=== PATIENT | female | born 1955 | race Caucasian/White ===

== ENCOUNTER 2017-01-30 17:18 | Inpatient (IN) | payer MEDICARE, OTHER ==
--- NOTE | ~2017-01-30 | DS ---
Discharge Summary [id number] [place] [address] NAME: AMAURI HASSAN : 53 STATUS : DIS IN PAT#: [id number] AGE: 61 ADM/REG DATE : 01/30/17 MR#: [id number] REPORT SERV DATE: 02/06/17 DICTATED BY: SANGITA MTZ DATE: 02/06/17 REPORT STATUS : Draft TRANSCRIBED BY: MODL DATE: 02/06/17 ADMISSION DATE: 01/30/2017 DISCHARGE DATE: 02/06/2017 DISCHARGE DIAGNOSES: 1. Chronic sacral wound. 2. Tachycardia, controlled. 3. Metastatic breast cancer, metastases known to bone and liver. 4. History of atrial fibrillation. 5. Chronic pancytopenia secondary to disease. 6. Generalized debility secondary to disease. 7. Chronic nausea secondary to disease controlled at this time. CONSULTATIONS: Infectious Disease, Dr. Chun. IMAGIN. X-ray left leg on January 30, 2017; impression, severe diffuse metastatic neoplastic disease. 2. X-ray, ribs January 30, 2017; impression, no evidence of displaced rib fracture. 3. Cervical x-ray, January 30, 2017; impression, extensive osteoblastic neoplastic disease. 4. X-ray of thoracic spine, January 30, 2017, extensive osteoblastic metastasis. 5. Chest x-ray, February 03, 2017; impression, no acute cardiopulmonary process demonstrated. Extensive osseous metastatic disease. Right 9th rib fracture has occurred since August. LABORATORY DATA: WBC 6.8, hemoglobin 8.4, hematocrit 27.6, and platelet count is 37. Wound culture, positive E. coli and methicillin-sensitive Staph aureus. COURSE OF HOSPITAL STAY: Please refer to history and physical dictated by Katelynn Donald, nurse practitioner on January 30, 2017 for complete admission details, as well as interim report noted on February 03, 2017. This patient is a 61-year-old female, who presented as a direct admission from [facility]'s office. She does present with a history of metastatic breast cancer, new metastasis to bone and liver. She is under the care Dr. Kim Adrian. The patient did present with complaints of increased pain. The patient has declined significantly since previous visits with Dr. Adrian. The patient did report that she was weaker over the past several days and had suffered a fall on [place] prior to admission hitting her neck and back on the door frame. The patient did deny at that time, loss of consciousness. She also had complaints of chronic nausea. The patient was then admitted to the hospital for pain control and further evaluation. 1. Chronic sacral wound. Wound cultures were obtained, which is noted above. Infectious Disease was consulted regarding antibiotic. Per their recommendation, no antibiotic was started. [place] that this was a colonized area and no antibiotic was needed for the wound. Wound care was provided and continued during her stay. Discharge Summary [address] [place]. [address] NAME: AMAURI HASSAN : 53 STATUS : DIS IN PAT#: [id number] AGE: 61 ADM/REG DATE : 01/30/17 MR#: [id number] REPORT SERV DATE: 02/06/17 DICTATED BY: SANGITA MTZ DATE: 02/06/17 REPORT STATUS : Draft TRANSCRIBED BY: ALEKSANDR DATE: 02/06/17 2. Tachycardia. The patient's heart rate noted elevated. She was started on the low-dose metoprolol. This will continue upon discharge. At this time, heart rate is 101, which is controlled. 3. Metastatic breast cancer with known metastasis to bone and liver. The patient is under the care Dr. Kim Adrian. Per Dr. Adrian and patient's conversation, no further treatments are planned. 4. History of atrial fibrillation. The patient was monitored during her stay and remained stable. 5. Chronic pancytopenia secondary to disease. The patient was monitored during her stay. She did receive one unit of packed RBCs during her stay here. 6. Generalized debility secondary to her disease. The patient's PT eval was completed and recommendations were made. The patient will be discharged to a skilled facility for further treatment. 7. Chronic nausea secondary to disease. The patient has had scheduled antiemetics, which have controlled her symptoms. DISCHARGE PLANNING: The patient will be discharged to skilled facility and no further chemo is planned at this time. Pain is better controlled, as well as nausea. DISCHARGE MEDICATIONS: 1. Fentanyl 100 mcg patch topical every 72 hours. 2. Lopressor 12.5 mg one p.o. twice daily. 3. MiraLAX powder one pack p.o. daily p.r.n. for constipation. 4. Tylenol 325 mg and 650 mg p.o. every four hours p.r.n. for pain. 5. Dulcolax 5 mg and 10 mg p.o. p.r.n. for constipation. 6. Flexeril 10 mg one p.o. three times daily p.r.n. for muscle spasm. 7. Benadryl 25 mg and 50 mg p.o. every four hours p.r.n. for itching. 8. Marinol 5 mg p.o. p.r.n. daily. 9. Zofran 8 mg p.o. every eight hours p.r.n. for nausea. 10.Percocet 10/325 one to two p.o. every four hours p.r.n. for pain. 11.Phenergan 25 mg one p.o. every four hours p.r.n. for nausea. 12.Ambien 10 mg one p.o. at bedtime. 13.Lidoderm 5% ointment one application topical p.r.n. to the dressing change area. This discharge took less than 30 minutes. SHILO/ALEKSANDR Sangita Mtz NP / [id number] CC: All Oshea MD
--- NOTE | ~2017-01-30 | HP ---
History And Physical [address] [place]. [address] NAME: AMAURI HASSAN : 53 STATUS : ADM IN PAT#: [id number] AGE: 61 ADM/REG DATE : 01/30/17 MR#: [id number] REPORT SERV DATE: 01/31/17 DICTATED BY: DATE: REPORT STATUS : Draft TRANSCRIBED BY: MODL DATE: 01/30/17 DATE OF ADMISSION: 01/30/2017 CHIEF COMPLAINT: Acute on chronic pain secondary to fall, nausea with vomiting, and metastatic breast cancer. POINT OF ENTRY: Direct admission from [facility]. HISTORY OF PRESENTING ILLNESS: The patient's history was obtained through careful interview with the patient and her sister coupled with review of [facility] office note dated 01/30/[address] Kim Adrian in addition to review of [facility] records. Briefly, the patient is a 61-year-old female who presented to [facility]'s office today for a followup visit. The patient has a history of metastatic breast cancer with extensive bone involvement with liver lesions. There are no plans for any further therapy secondary to patient's poor performance status. Upon evaluation, during Oncology office visit, the patient was found to be feeling poorly with increased nausea and decreased p.o. intake. The patient reported several recent falls at home with most recent one occurring on 01/27/2017. Since that fall the patient has had increased pain. During today's office visit, it was noticed that the patient has declined significantly since last visit and is no longer to take care of herself nor can she be safely cared for at home due to continued decline in performance status. The patient was referred for direct admission for further evaluation of increased pain secondary to recent fall and uncontrolled nausea. The patient reported that she has become weaker over the past several days and suffered a fall on Friday resulting in hitting her neck and mid back on a door frame. The patient denied loss of consciousness associated with the fall. The patient also complained of increased chronic nausea with intermittent vomiting several times weekly. Up until recently, the patient was able to ambulate using a cane, however, she is now reporting an unsteady gait secondary to generalized weakness. REVIEW OF SYSTEMS: CONSTITUTIONAL: Denies recent fever, chills, rigors. EYES: Denies any recent changes in visual acuity. HEENT: Denies headache and sore throat. CARDIOVASCULAR: Denies chest pain, palpitations, syncope. RESPIRATORY: Denies cough, wheezing, shortness of breath. GASTROINTESTINAL: Complains of chronic nausea with intermittent vomiting. Denies abdominal pain, diarrhea, and constipation. History And Physical [address] [place]. [address] NAME: AMAURI HASSAN : 53 STATUS : ADM IN [facility]#: [id number] AGE: 61 ADM/REG DATE : 01/30/17 MR#: [id number] REPORT SERV DATE: 01/31/17 DICTATED BY: DATE: REPORT STATUS : Draft TRANSCRIBED BY: MODL DATE: 01/30/17 MUSCULOSKELETAL: Complains of chronic low back pain. A new acute pain to cervical and thoracic spine, right lateral ribs, and left lower extremity secondary to recent fall. INTEGUMENT: Positive for chronic sacral wound. NEUROLOGIC: Positive for stroke, TIA, and weakness. HEMATOLOGIC: Positive for chronic anemia. PSYCHIATRIC: Negative for depression, bipolar, and anxiety. : Negative for dysuria and hematuria. ENDOCRINE: Negative for diabetes and thyroid disease. The review of systems is negative except for the pertinent listed above. SOCIAL HISTORY: The patient lives with her sister and [id number]. No history of alcohol use. Remote smoker, having quit approximately seven years ago. FAMILY HISTORY: Obtained from review of [facility] office note. The patient's mother is with health history of cancer. The patient's father is with health history of heart disease. HOME MEDICATIONS: 1. Excedrin extra strength tablet, take two tablets p.o. every six hours as needed. 2. Dulcolax 5 mg tablet, take two tablets p.o. daily as needed. 3. Flexeril 10 mg tablet p.o. three times daily as needed. 4. Benadryl 25 mg tablet, take 50 mg p.o. every four hours as needed. 5. Marinol 5 mg tablet, take 5 mg p.o. daily as needed. 6. Fentanyl 100 mcg patch applied topically every 72 hours. 7. Zofran ODT 8 mg tablet every eight hours as needed. 8. Percocet 10/325 mg tablet, take one to two tabs p.o. every four hours as needed. 9. Phenergan 25 mg tablet p.o. every four hours as needed. 10.Lidocaine 5% ointment applied topically before sacral wound dressing changes as needed. 11.Ambien 10 mg tablet p.o. at bedtime as needed. ALLERGIES: 1. LATEX. REACTION, HIVES. 2. SHELLFISH. REACTION, NAUSEA AND VOMITING. 3. AUGMENTIN. REACTION, NAUSEA AND VOMITING. 4. TAPE. REACTION, RASH. 5. MUSHROOM. REACTION, NAUSEA. PHYSICAL EXAMINATION: VITAL SIGNS: Blood pressure 134/72, oxygen saturation 100% on room air, temperature 98.7, pulse 126, respirations 16, weight 55.8 kg, height 5 feet 5 inches. NEURO: The patient is alert with no focal deficits. GENERAL: The patient is cooperative and in no apparent distress. Awake, alert, and oriented x3. Able to answer questions, but occasionally has difficulty with word finding. Appears frail. NECK: No lymphadenopathy. Posterior oropharynx is visible without lesions or exudate. CHEST: Right lateral ribs tender to palpation without lesions or bruises. Right Port-A-Cath History And Physical [address] [address] NAME: AMAURI HASSAN : 53 STATUS : ADM IN [facility]#: [id number] AGE: 61 ADM/REG DATE : 01/30/17 MR#: [id number] REPORT SERV DATE: 01/31/17 DICTATED BY: DATE: REPORT STATUS : Draft TRANSCRIBED BY: MODL DATE: 01/30/17 is intact. Surrounding skin without redness, warmth, or breakdown. LUNGS: Normal work of breathing. Diminished at bilateral bases. No wheezes. No rhonchi. CARDIOVASCULAR: Regular rate and rhythm. Mild tachycardia. EXTREMITIES: Edema to left lower extremity below the knee extending to ankle. Bilateral pedal pulses palpable. SKIN: Bandage to sacral wound clean, dry, and intact, but not removed during initial assessment. PSYCH: Normal affect. PAST MEDICAL HISTORY: 1. Atrial fibrillation with history of TIA and stroke. 2. Esophageal stricture requiring multiple dilatations. 3. Hypertension. 4. Chronic anemia. 5. Chronic sacral wounds. 6. Metastatic breast cancer with extensive bone metastases and liver lesions. DICTATION ENDS HERE CHASE/ALEKSANDR KAREL Collazo / [id number] CC: Dipesh Peter II, MD
--- NOTE | ~2017-01-30 | IDS ---
Interim Discharge Summary [facility] [address] [place]. [address] NAME: AMAURI HASSAN : 53 STATUS : ADM IN PAT#: [id number] AGE: 61 ADM/REG DATE : 01/30/17 MR#: [id number] REPORT SERV DATE: 02/04/17 DICTATED BY: DATE: REPORT STATUS : Draft TRANSCRIBED BY: MODL DATE: 02/03/17 ADMISSION DATE: 01/30/2017 DISCHARGE DATE: Discharge date pending approval to long-term care facility. Interim summary covers dates of service between 01/30/2017 and 02/03/2017. INTERIM DIAGNOSES: 1. Tachycardia. Heart rate has been mildly elevated throughout this admission. The patient's heart rate has ranged between 119 and 122 today. The patient is asymptomatic, rate is elevated, however, rhythm is regular in the setting of paroxysmal atrial fibrillation. The patient's systolic blood pressure has remained stable between 124 and 148. Metoprolol tartrate 12.5 mg p.o. twice daily was added tonight with parameters to hold for systolic blood pressure less than 110 or heart rate less than 60. 2. Acute on chronic pain. The patient has severe chronic pain secondary to extensive bone metastasis in the setting of breast cancer. The patient presented with complaints of acute on chronic pain secondary to sustaining a fall at home on 01/27/2017. Acute pain to cervicothoracic spine, right lateral ribs, and left lower extremity for persistent status post fall. The patient underwent x-rays to cervical and thoracic spine, right lateral ribs, and 2-view film of the left tibia and fibula. All x-rays were negative for fracture. However, the patient underwent chest x-ray today for clearance to transfer to long-term care facility. Chest x-ray indicated nondisplaced fracture of the right 9th rib laterally, which is new from August comparison imaging. This would help explain the patient's complaints of increased right rib pain in the setting of metastases. Continue pain medications as needed. 3. Chronic sacral wound. This has been present for 10+ years secondary to chemotherapy and radiation therapy. The patient has history of wound infection to include Pseudomonas, MSSA, and Klebsiella pneumoniae. The patient is under the outpatient wound care of Dr. Mendenhall. Wound nurse was consulted upon admission, and wound care has provided further recommendations. The patient began complaining of discomfort at wound site on February 01. Assessment of wound revealed fairly clean wound base with yellow slough with mild amount of purulent drainage and foul odor. Culture was obtained and is pending. Antibiotics on hold for now until final wound culture results. The patient is afebrile, and no clinical signs or symptoms of systemic infection. If concerned for infection, the patient may require imaging to rule out bone infection as well. 4. Metastatic breast cancer with extensive metastatic disease to bone with liver lesions. The patient is not a candidate for any future therapy. Goal is to transfer to long- term care facility, to continue comfort measures. The patient requested to go to [facility] and approval is pending. 5. Atrial fibrillation, paroxysmal history. The patient has history of TIA as well. The patient has not been on chronic anticoagulation for quite some time secondary to chronic pancytopenia from metastatic disease. The patient has recent concern that she may be experiencing intermittent TIA secondary to increased difficulty with word Interim Discharge Summary [address] [place]. [address] NAME: AMAURI HASSAN : 53 STATUS : ADM IN PAT#: [id number] AGE: 61 ADM/REG DATE : 01/30/17 MR#: [id number] REPORT SERV DATE: 02/04/17 DICTATED BY: DATE: REPORT STATUS : Draft TRANSCRIBED BY: ALEKSANDR DATE: 02/03/17 finding. The patient was educated that she is at increased risk for adverse effects of chronic anticoagulation to include spontaneous bleed in the setting of chronic thrombocytopenia. Platelet count is 20 today. 6. Chronic pancytopenia, this is secondary to metastatic disease. The patient's hemoglobin was 6.8 today. She is status post 1 unit packed red blood cells. H and H will be rechecked, and the patient will receive one more unit if hemoglobin remains below 7. Continue to transfuse p.r.n. 7. General debility. This patient was transitioned to long-term care facility for continued comfort and supportive measures secondary to metastatic breast cancer with extensive metastases. 8. Chronic nausea, this is secondary to disease state. Continue antiemetics p.r.n. DISPOSITION: 1. The patient is planning transfer to [facility] once approval has been granted. 2. Monitor blood pressure and heart rate with new addition of low-dose beta-na added last night. CHASE/ALEKSANDR KAREL Collazo / [id number] CC: Solomon Ortega M.D.
--- NOTE | ~2017-01-30 | HP ---
History And Physical [address] [id number] [place]. [address] NAME: AMAURI HASSAN : 53 STATUS : ADM IN PAT#: [id number] AGE: 61 ADM/REG DATE : 01/30/17 MR#: [id number] REPORT SERV DATE: 01/31/17 DICTATED BY: DATE: REPORT STATUS : Draft TRANSCRIBED BY: MODL DATE: 01/30/17 DATE OF ADMISSION: 01/30/2017 ADDENDUM: ASSESSMENT AND PLAN: 1. Acute on chronic pain. The patient is experiencing cervical, thoracic, and right lateral rib pain in addition to pain on left lower extremity below-knee secondary to fall sustained at home on 01/27/2017. Chronic pain is related to extensive bone metastases secondary to metastatic breast cancer. X-ray will be obtained of cervical thoracic spine and right lateral ribs and 2-view x-ray of left tibia and fibula. The patient will continue home pain medications and they will be titrated as indicated based on the patient's pain level. 2. Chronic nausea with intermittent vomiting. This is likely related to progression of metastatic disease. The patient will be provided Zofran and Phenergan as needed. 3. Chronic sacral wound. This has been present for approximately 10 years as a result of Taxol and radiation therapy. Wound requires packing. Wound nurse has been consulted. Wound was not assessed during an initial exam. Bandage was clean, dry, and intact. 4. Atrial fibrillation history. The patient also has history of transient ischemic attack and stroke. The patient has not been on any chronic anticoagulation for quite some time secondary to metastatic disease and chronic anemia and thrombocytopenia. 5. Chronic anemia. This is likely due to metastatic disease progression. The patient did receive EPO shot today, transfuse as needed for hemoglobin less than 7 or platelets less than 10. 6. Metastatic breast cancer with extensive bone metastases and liver lesions. The patient is managed by Dr. Kim Adrian, [facility]. There is no further therapy planned secondary to poor performance status. All efforts from this point forward will be focused on comfort. The patient has denied hospice in the past and still refuses medications to transfer care of service to hospice. However, the patient is agreeable to transition to senior living facility for end of life care. The patient's code status is do not resuscitate do not intubate. The care of this patient will be transferred to the service of Dr. Dipesh Peter. ANTONIAH/ALEKSANDR KAREL Collazo / [id number] CC: Dipesh Peter II, MD
[~2017-01-30 17:18] MED LIST: AMB10 PO; ARIMIDEX1 PO; BEN25 PO; BETAPACE80 PO; DEPAKOTEER PO; DURA75 TOP; FASLODEX IM; FLEX PO; IBRANCE125 PO; KLONO5 PO; LORCET PO; LUNESTA3 MG PO; MARI5 PO; MSCONT15 PO; NORCO1 TAB PO; PERCOCET 10/3251 TAB PO; PHENERGAN25 MG/ML PO; PR25 PO; PRADAXA150 MG PO; VICODINTAB PO; ZOFRAN8 PO; ZOFRANODT8 PO
[2017-01-30] MEDS ORDERED: DURA100 TOP (17:53)
[2017-01-30] MEDS ORDERED: BEN25 PO (17:57)
[2017-01-30] MEDS ORDERED: LIDOCAINE 5% OINT TOP (17:58)
[2017-01-30] MEDS ORDERED: EXCEDRIN EXTRA1 EACH PO (17:58)
[2017-01-30] MEDS ORDERED: BIST PO (17:59)
[2017-01-30 20:42] LABS: HEMATOCRIT 24.1 % (36.0-48.0); HEMOGLOBIN 7.3 g/dL (12.0-16.0); MEAN CORPUSCULAR HEMOGLOB 29.9 pg (26.0-34.0); NUCLEATED RED BLOOD CELLS 7.9 /100WBC (0-0); PLATELET COUNT 50 10/3/uL (150-400); RBC DISTRIBUTION WIDTH 20.8 % (12.0-16.0); RED CELL COUNT 2.44 10/6/uL (4.0-5.6)
[2017-01-30 20:45] LABS: MANUAL DIFF YES %; MEAN CORPUS HGB CONC 30.3 g/dL (32.0-36.0); MEAN CORPUSCULAR VOLUME 98.8 fL (80-100); WHITE BLOOD CELLS 5.6 10/3/uL (4.5-10.5)
[2017-01-30 20:46] LABS: BUN (BLOOD UREA NITROGEN) 21 MG/DL (6-23); CALCIUM, SERUM 10.1 MG/DL (8.5-10.4); CHLORIDE, SERUM 102 MMOL/L (96-112); CO2 (CARBON DIOXIDE) 28 MMOL/L (24-34); CREATININE 1.09 MG/DL (0.55-1.02); GFR AFRICAN AMERICAN 63 ML/MIN (>=60); GFR NON AFRICAN AMERICAN 54 ML/MIN (>=60); GLUCOSE, SERUM 115 MG/DL (60-99); POTASSIUM, SERUM 3.7 MMOL/L (3.5-5.3); SODIUM, SERUM 138 MMOL/L (135-148)
[2017-01-30 20:53] LABS: BAND NEUTROPHILS 17 %; IMMATURE GRANS ABSOLUTE (CALC) 0.28 10/3/uL (0.0-0.11); LYMPHOCYTES 17 %; LYMPHOCYTES ABSOLUTE (CALC) 0.95 10/3/uL (0.67-4.30); METAMYELOCYTES 5 %; MONOCYTES 13 %; MONOCYTES ABSOLUTE (CALC) 0.73 10/3/uL (0.21-1.20); NEUTROPHILS ABSOLUTE (CALC) 3.64 10/3/uL (2.02-8.40); SEGMENTED NEUTROPHIL (0) 48 %; TOTAL NUCLEATED CELLS 100; TOXIC GRANULATION 2+
[2017-01-30 20:54] LABS: ANISOCYTOSIS 1+ (5-10/OIF) (0-5/OIF); PLATELET ESTIMATE DEC (ADEQUATE); POLYCHROMASIA 1+ (2-5/OIF) (0-1/OIF); TEARDROP SHAPED RBCS OCC (0-2/OIF)
[2017-01-31 08:02] LABS: HEMOGLOBIN 7.4 g/dL (12.0-16.0); MEAN CORPUS HGB CONC 30.8 g/dL (32.0-36.0); MEAN CORPUSCULAR HEMOGLOB 30.5 pg (26.0-34.0); MEAN CORPUSCULAR VOLUME 98.8 fL (80-100); RBC DISTRIBUTION WIDTH 20.7 % (12.0-16.0); RED CELL COUNT 2.43 10/6/uL (4.0-5.6); WHITE BLOOD CELLS 5.1 10/3/uL (4.5-10.5)
[2017-01-31 08:14] LABS: BUN (BLOOD UREA NITROGEN) 22 MG/DL (6-23); CALCIUM, SERUM 10.4 MG/DL (8.5-10.4); CHLORIDE, SERUM 102 MMOL/L (96-112); CO2 (CARBON DIOXIDE) 28 MMOL/L (24-34); CREATININE 1.03 MG/DL (0.55-1.02); GFR AFRICAN AMERICAN 67 ML/MIN (>=60); GFR NON AFRICAN AMERICAN 58 ML/MIN (>=60); GLUCOSE, SERUM 92 MG/DL (60-99); POTASSIUM, SERUM 4.3 MMOL/L (3.5-5.3); SODIUM, SERUM 139 MMOL/L (135-148)
[2017-01-31 08:23] LABS: PLATELET COUNT 42 10/3/uL (150-400)
[2017-01-31 08:25] LABS: MANUAL DIFF YES %
[2017-01-31 08:48] LABS: ANISOCYTOSIS 1+ (5-10/OIF) (0-5/OIF); BAND NEUTROPHILS 27 %; IMMATURE GRANS ABSOLUTE (CALC) 0.46 10/3/uL (0.0-0.11); LYMPHOCYTES 14 %; LYMPHOCYTES ABSOLUTE (CALC) 0.71 10/3/uL (0.67-4.30); METAMYELOCYTES 4 %; MONOCYTES 6 %; MONOCYTES ABSOLUTE (CALC) 0.31 10/3/uL (0.21-1.20); MYELOCYTES 5 %; NEUTROPHILS ABSOLUTE (CALC) 3.62 10/3/uL (2.02-8.40); NUCLEATED RED BLOOD CELLS 5 /100WBC (0); POLYCHROMASIA 1+ (2-5/OIF) (0-1/OIF); SEGMENTED NEUTROPHIL (0) 44 %; TOTAL NUCLEATED CELLS 100
[2017-01-31 08:49] LABS: BASOPHILIC STIPPLING 1+ (2-5/OIF) (0-1/OIF); ROULEAUX FORMATION 1+
[2017-02-01 05:38] LABS: BUN (BLOOD UREA NITROGEN) 18 MG/DL (6-23); CALCIUM, SERUM 9.9 MG/DL (8.5-10.4); CHLORIDE, SERUM 101 MMOL/L (96-112); CO2 (CARBON DIOXIDE) 29 MMOL/L (24-34); CREATININE 0.94 MG/DL (0.55-1.02); GFR AFRICAN AMERICAN 75 ML/MIN (>=60); GFR NON AFRICAN AMERICAN 65 ML/MIN (>=60); GLUCOSE, SERUM 85 MG/DL (60-99); POTASSIUM, SERUM 4.4 MMOL/L (3.5-5.3); SODIUM, SERUM 138 MMOL/L (135-148)
[2017-02-01 06:22] LABS: BASOPHILS ABSOLUTE 0.09 10/3/uL (0.0-0.16); EOSINOPHILS 0.7 %; EOSINOPHILS ABSOLUTE 0.03 10/3/uL (0.0-0.53); HEMATOCRIT 22.4 % (36.0-48.0); HEMOGLOBIN 7.2 g/dL (12.0-16.0); IMMATURE GRANULOCYTES 3.5 %; IMMATURE GRANULOCYTES ABSOLUTE 0.16 10/3/uL (0.0-0.11); LYMPHOCYTES 30.5 %; LYMPHOCYTES ABSOLUTE 1.38 10/3/uL (0.67-4.30); MEAN CORPUS HGB CONC 32.1 g/dL (32.0-36.0); MEAN CORPUSCULAR VOLUME 99.6 fL (80-100); MONOCYTES 10.8 %; MONOCYTES ABSOLUTE 0.49 10/3/uL (0.21-1.20); NEUTROPHILS 52.5 %; NEUTROPHILS ABSOLUTE 2.37 10/3/uL (2.02-8.40); RBC DISTRIBUTION WIDTH 20.9 % (12.0-16.0); RED CELL COUNT 2.25 10/6/uL (4.0-5.6); WHITE BLOOD CELLS 4.5 10/3/uL (4.5-10.5)
[2017-02-01 06:23] LABS: MANUAL DIFF NO %; PLATELET COUNT 42 10/3/uL (150-400)
[2017-02-01 07:42] LABS: ANISOCYTOSIS 1+ (5-10/OIF) (0-5/OIF); MACROCYTES 1+ (5-10/OIF) (0-5/OIF); POLYCHROMASIA 1+ (2-5/OIF) (0-1/OIF)
[2017-02-01 07:43] LABS: TEARDROP SHAPED RBCS OCC (0-2/OIF)
[2017-02-02 06:42] LABS: HEMATOCRIT 22.6 % (36.0-48.0); MEAN CORPUSCULAR HEMOGLOB 29.8 pg (26.0-34.0); MEAN CORPUSCULAR VOLUME 99.1 fL (80-100); NUCLEATED RED BLOOD CELLS 8.9 /100WBC (0-0); RBC DISTRIBUTION WIDTH 20.8 % (12.0-16.0); RED CELL COUNT 2.28 10/6/uL (4.0-5.6)
[2017-02-02 06:44] LABS: HEMOGLOBIN 6.8 g/dL (12.0-16.0); MEAN CORPUS HGB CONC 30.1 g/dL (32.0-36.0); PLATELET COUNT 34 10/3/uL (150-400)
[2017-02-02 06:46] LABS: MANUAL DIFF YES %
[2017-02-02 07:30] LABS: ANISOCYTOSIS 1+ (5-10/OIF) (0-5/OIF); BAND NEUTROPHILS 14 %; EOSINOPHILS 2 %; LYMPHOCYTES 17 %; LYMPHOCYTES ABSOLUTE (CALC) 0.85 10/3/uL (0.67-4.30); MACROCYTES 1+ (5-10/OIF) (0-5/OIF); METAMYELOCYTES 5 %; MONOCYTES 14 %; MYELOCYTES 5 %; NEUTROPHILS ABSOLUTE (CALC) 2.85 10/3/uL (2.02-8.40); SEGMENTED NEUTROPHIL (0) 43 %; TOTAL NUCLEATED CELLS 100
[2017-02-02 07:31] LABS: POLYCHROMASIA 1+ (2-5/OIF) (0-1/OIF)
[2017-02-03 12:34] LABS: HEMATOCRIT 22.6 % (36.0-48.0); MEAN CORPUS HGB CONC 30.1 g/dL (32.0-36.0); MEAN CORPUSCULAR HEMOGLOB 30.4 pg (26.0-34.0); MEAN CORPUSCULAR VOLUME 100.9 fL (80-100); NUCLEATED RED BLOOD CELLS 12.3 /100WBC (0-0); RBC DISTRIBUTION WIDTH 21.2 % (12.0-16.0); RED CELL COUNT 2.24 10/6/uL (4.0-5.6)
[2017-02-03 12:35] LABS: HEMOGLOBIN 6.8 g/dL (12.0-16.0); MANUAL DIFF YES %; PLATELET COUNT 32 10/3/uL (150-400)
[2017-02-03 13:02] LABS: ANISOCYTOSIS 1+ (5-10/OIF) (0-5/OIF); BAND NEUTROPHILS 15 %; BASOPHILIC STIPPLING 1+ (2-5/OIF) (0-1/OIF); BASOPHILS 1 %; BASOPHILS ABSOLUTE (CALC) 0.05 10/3/uL (0.0-0.16); EOSINOPHILS 1 %; EOSINOPHILS ABSOLUTE (CALC) 0.05 10/3/uL (0.0-0.53); IMMATURE GRANS ABSOLUTE (CALC) 0.15 10/3/uL (0.0-0.11); LYMPHOCYTES 22 %; MACROCYTES 1+ (5-10/OIF) (0-5/OIF); METAMYELOCYTES 2 %; MONOCYTES 5 %; MONOCYTES ABSOLUTE (CALC) 0.25 10/3/uL (0.21-1.20); MYELOCYTES 1 %; POLYCHROMASIA 1+ (2-5/OIF) (0-1/OIF); SEGMENTED NEUTROPHIL (0) 53 %; TOTAL NUCLEATED CELLS 100
[2017-02-03 22:12] LABS: HEMATOCRIT 27.1 % (36.0-48.0); HEMOGLOBIN 8.4 g/dL (12.0-16.0)
[2017-02-04 04:37] LABS: HEMATOCRIT 27.2 % (36.0-48.0); HEMOGLOBIN 8.5 g/dL (12.0-16.0); MEAN CORPUS HGB CONC 31.3 g/dL (32.0-36.0); MEAN CORPUSCULAR HEMOGLOB 29.8 pg (26.0-34.0); RBC DISTRIBUTION WIDTH 23.8 % (12.0-16.0)
[2017-02-04 04:39] LABS: MANUAL DIFF YES %; MEAN CORPUSCULAR VOLUME 95.4 fL (80-100); PLATELET COUNT 35 10/3/uL (150-400); RED CELL COUNT 2.85 10/6/uL (4.0-5.6); WHITE BLOOD CELLS 7.5 10/3/uL (4.5-10.5)
[2017-02-04 04:49] LABS: BUN (BLOOD UREA NITROGEN) 20 MG/DL (6-23); CALCIUM, SERUM 10.1 MG/DL (8.5-10.4); CHLORIDE, SERUM 100 MMOL/L (96-112); CO2 (CARBON DIOXIDE) 32 MMOL/L (24-34); CREATININE 0.83 MG/DL (0.55-1.02); GFR AFRICAN AMERICAN 88 ML/MIN (>=60); GFR NON AFRICAN AMERICAN 76 ML/MIN (>=60); GLUCOSE, SERUM 98 MG/DL (60-99); POTASSIUM, SERUM 4.2 MMOL/L (3.5-5.3); SODIUM, SERUM 139 MMOL/L (135-148)
[2017-02-04 05:10] LABS: BAND NEUTROPHILS 16 %; IMMATURE GRANS ABSOLUTE (CALC) 0.38 10/3/uL (0.0-0.11); LYMPHOCYTES 25 %; LYMPHOCYTES ABSOLUTE (CALC) 1.88 10/3/uL (0.67-4.30); METAMYELOCYTES 4 %; MONOCYTES 7 %; MONOCYTES ABSOLUTE (CALC) 0.53 10/3/uL (0.21-1.20); MYELOCYTES 1 %; NEUTROPHILS ABSOLUTE (CALC) 4.73 10/3/uL (2.02-8.40); SEGMENTED NEUTROPHIL (0) 47 %; TOTAL NUCLEATED CELLS 100
[2017-02-04 05:11] LABS: HYPOCHROMIA 1+ (3-10/OIF) (0-2/OIF); MACROCYTES 1+ (5-10/OIF) (0-5/OIF); POLYCHROMASIA 2+ (5-10/OIF) (0-1/OIF)
[2017-02-04 05:12] LABS: TARGET CELLS OCC (1-2/OIF) (0-1/OIF)
[2017-02-05 05:00] LABS: HEMATOCRIT 27.6 % (36.0-48.0); HEMOGLOBIN 8.4 g/dL (12.0-16.0); MEAN CORPUS HGB CONC 30.4 g/dL (32.0-36.0); MEAN CORPUSCULAR HEMOGLOB 29.6 pg (26.0-34.0); MEAN CORPUSCULAR VOLUME 97.2 fL (80-100); NUCLEATED RED BLOOD CELLS 12.4 /100WBC (0-0); RBC DISTRIBUTION WIDTH 23.3 % (12.0-16.0); RED CELL COUNT 2.84 10/6/uL (4.0-5.6); WHITE BLOOD CELLS 6.8 10/3/uL (4.5-10.5)
[2017-02-05 05:05] LABS: MANUAL DIFF YES %; PLATELET COUNT 37 10/3/uL (150-400)
[2017-02-05 05:46] LABS: BAND NEUTROPHILS 11 %; BASOPHILS 1 %; BASOPHILS ABSOLUTE (CALC) 0.07 10/3/uL (0.0-0.16); IMMATURE GRANS ABSOLUTE (CALC) 0.54 10/3/uL (0.0-0.11); LYMPHOCYTES 15 %; LYMPHOCYTES ABSOLUTE (CALC) 1.02 10/3/uL (0.67-4.30); METAMYELOCYTES 7 %; MONOCYTES 8 %; MONOCYTES ABSOLUTE (CALC) 0.54 10/3/uL (0.21-1.20); MYELOCYTES 1 %; NEUTROPHILS ABSOLUTE (CALC) 4.62 10/3/uL (2.02-8.40); POLYCHROMASIA 1+ (2-5/OIF) (0-1/OIF); SEGMENTED NEUTROPHIL (0) 57 %; TEARDROP SHAPED RBCS FEW (3-10/OIF); TOTAL NUCLEATED CELLS 100
== END 2017-02-06 12:20 | DRG 605 ==
LOC: 4EA 17:18
PROVIDERS: Internal Medicine; Nurse Practitioner Family
DX: S31.000A Unspecified open wound of lower back and pelvis without penetration into retroperitoneum, initial encounter (principal); D61.818 Other pancytopenia; C78.7 Secondary malignant neoplasm of liver and intrahepatic bile duct; C79.51 Secondary malignant neoplasm of bone; C50.919 Malignant neoplasm of unspecified site of unspecified female breast; I48.0 Paroxysmal atrial fibrillation; E44.1 Mild protein-calorie malnutrition; Z79.01 Long term (current) use of anticoagulants; Z68.20 Body mass index [BMI] 20.0-20.9, adult; Z66 Do not resuscitate
CPT/HCPCS: 36415; 36593; 71010; 71100-RT; 72040; 72072; 73590-LT; 80048; 85014; 85018; 85025; 85347; 86850; 86900; 86901; 86920; 87070; 87077; 87186; 87205; 97116-GP; 97162-GP; A9270-GY; G8978-CK-GP; G8979-CI-GP; J0690; J2997; P9040